=== PATIENT | female | born 1980 | race Caucasian/White ===

== ENCOUNTER 2020-01-29 18:16 | Emergency (ER) | payer OTHER ==
[2020-01-29 18:34] VITALS: BP 149/90
--- NOTE | 2020-01-29 18:45 | ER Document Report ---
ED Extremity Problem, Lower - General Chief Complaint: Leg Pain Stated Complaint: RIGHT LEG PAIN,SWELLING Time Seen by Provider: 01/29/20 18:18 Primary Care Provider: [facility] [Provider Group] - Follow up as needed [facility] [Provider Group] - Follow up as needed Mode of Arrival: Ambulatory Information source: Patient Notes: 39-year-old female presented to ED for insect bite that is now infected. She states she was bit by something while she was gardening yesterday. She states it itched last night so she took some Benadryl. She states she knew it was swelling during the night and she thought she might of scratched it some then this morning before going to work she took some Zyrtec because she could not sleep as she was going to work. She states she did take Tylenol 500 mg this morning both of these at 630 this morning. She states she felt more burning and swelling about 2 PM so she took some more Tylenol. She states at that time a little while after that it started itching and burning and then she noticed there was some blisters to the site. She states the blisters have gotten much larger and now she can feel her pulse in them. 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 She states she does not smoke she is a former smoker she does not drink in the last 9 months and she does not use any illicit drugs. 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 REVIEW OF SYSTEMS: CONSTITUTIONAL : Denies fever, chills, or sweats. Denies recent illness. RESPIRATORY: Denies cough, cold, or chest congestion. Denies shortness of breath, difficulty breathing, or wheezing. MUSCULOSKELETAL: Swelling to the right ankle SKIN: Redness swelling and blisters to the right ankle and she was bit by something while gardening yesterday and the redness and swelling have increased and now it has blisters ALL OTHER SYSTEMS REVIEWED AND NEGATIVE. VITAL SIGNS: Within normal limits. GENERAL: No acute distress, non-toxic appearance. CHEST: Clear breath sounds bilaterally. No wheezes, rales, or rhonchi. CARDIAC: Regular rate and rhythm. S1 and S2, without murmurs, gallops, or rubs. VASCULAR: Edema to the right ankle redness and tenderness blisters to the right ankle peripheral pulses normal and equal in all extremities. MUSCULOSKELETAL: Erythema swelling and blisters to the right ankle SKIN: Redness swelling and blisters to the medial aspect of the right ankle. Tender to palpation - HPI Patient complains to provider of: Pain, Swelling Location: Ankle - Right Occurred: Yesterday Where: Home, Outdoors Onset/Duration: Gradual Quality of pain: Burning Severity: Mild Pain Level: 2 Context: Wearing shoes Recent injury: No - Insect bite that she scratched Associated symptoms: Painful ambulation Exacerbated by: Movement, Walking Relieved by: Elevation, Ice - Related Data Allergies/Adverse Reactions: lidocaine Allergy (Severe, Verified 01/29/20 18:27) 2nd degree wolfe ibuprofen [From Motrin] Allergy (Verified 01/29/20 18:40) neurological prednisone Allergy (Verified 01/29/20 18:40) Suicidal Sulfa (Sulfonamide Antibiotics) Allergy (Verified 01/29/20 18:39) Jaundice Benzodiazepines Adverse Reaction (Verified 01/29/20 18:40) Hyperactivity Home Medications: multivitamins x3 Past Medical History - General Information source: Patient - Social History Smoking Status: Never Smoker Chew tobacco use (# tins/day): No Frequency of alcohol use: None Drug Abuse: None Occupation: Lead Maintenance Technician Family History: Reviewed & Not Pertinent Patient has homicidal ideation: No - Medical History Medical History: Other - Lyme's - Past Medical History Cardiac Medical History: Reports: None Pulmonary Medical History: Reports: None EENT Medical History: Reports: None Neurological Medical History: Reports: None Endocrine Medical History: Reports: None Renal/ Medical History: Reports: Other - Urethral stricture needed dilatation as an GI Medical History: Reports: None Musculoskeletal Medical History: Reports None Skin Medical History: Reports None Psychiatric Medical History: Reports: None Traumatic Medical History: Reports: None Infectious Medical History: Reports: None Past Surgical History: Reports: Hx Genitourinary Surgery - Urethral dilatation - Immunizations Immunizations up to date: Yes Hx Diphtheria, Pertussis, Tetanus Vaccination: Yes Physical Exam - Vital signs Vitals: Temp Pulse Resp BP Pulse Ox 98.6 F 79 16 149/90 H 97 01/29/20 18:21 01/29/20 18:21 01/29/20 18:21 01/29/20 18:21 01/29/20 18:21 Course - Re-evaluation Re-evalutation: 01/29/20 18:47 Discussed blisters and history and physical with Dr. Clark. I did show him pictures of the blisters and the redness to the ankle. He stated it was a staph infection and due to the insect bites and a lot she had MRSA or diabetes he recommended treatment with Augmentin. Patient was started on Augmentin and discharged home. She was also given a prescription for Bactroban. - Vital Signs Vital signs: Temp Pulse Resp BP Pulse Ox 98.6 F 79 16 149/90 H 97 01/29/20 18:21 01/29/20 18:21 01/29/20 18:21 01/29/20 18:21 01/29/20 18:21 Discharge - Discharge Clinical Impression: Cellulitis of right ankle Insect bite Qualifiers: Encounter type: initial encounter Site of insect bite: ankle Laterality: right Qualified Code(s): S90.561A - Insect bite (nonvenomous), right ankle, initial encounter Condition: Stable Disposition: HOME, SELF-CARE Additional Instructions: Insect Bites You have been bitten by an insect. These bites can cause two types of swelling: an initial swelling due to insect saliva or injected poison, and a late reaction due to your body's allergic reaction. This initial local reaction may be uncomfortable but is not dangerous. Often there's an itchy "hive" at the bite location. This is treated with anti histamines, cold compresses, and resting the affected body part. The later reaction often develops about the second day. The entire area becomes very swollen, red, itchy, and tender. This is an allergic reaction. Your body is attacking the leftover insect saliva or venom. This type of allergy is unpleasant, but not dangerous. We treat this swelling with cortisone-type medicine. Sometimes we use antibiotics if we're worried about infection. Antihistamines help with the itch. If you develop a fever, chills, a red streak, or swollen glands in the area of the bite, infection may be starting. Return at once. CELLULITIS: You have an infection of your skin and underlying soft tissues called cellulitis. This is due to bacteria, which can enter through any break in the skin, or even through an irritated hair follicle. Untreated, cellulitis will usually worsen. Antibiotics are required. Usually, warm packs or warm soaks, and elevation of the infected area are recommended. You should start getting better within 24 to 36 hours. Most infections respond quickly to the right medication. Follow-up care is important, however, to check for abscess (boil) formation, unsuspected foreign body, or resistant infection. If you develop fever, chills, or if the area of infection is becoming rapidly more swollen or painful, call the doctor at once. Augmentin Augmentin is a mixture of amoxicillin and clavulanate. Amoxicillin is a member of the penicillin family. It covers the germs likely to cause ear, bronchial, and urinary infections better than plain penicillin. The addition of clavulanate allows it to cover staph infections of the skin, as well as resistant cases of ear and sinus infections. Your physician has chosen Augmentin for you because of the special nature of your situation. Augmentin is best taken with meals. Nausea after taking the medication is rare, but can occur. Diarrhea can occur, particularly in small children. Vaginal yeast infections, and oral thrush in infants are also common. Contact your physician if these problems occur. Allergy to penicillins is common. If you have had an allergic reaction to any drug of the penicillin family, you should never take any other penicillin. Notify your doctor at once if you develop hives, shortness of breath, swelling, or faintness. Bactroban Ointment Bactroban is very effective against the germs that cause infection within the skin. It's useful for impetigo and other superficial infections. Deeper infections require antibiotics by mouth or by shot. Apply the medicine three times a day for one week, or longer if your doctor has advised it. Stop the medicine and call your doctor if you develop large blisters, sev ere itching, increasing pain, swelling, fever, or spreading redness. FOLLOW-UP CARE: If you have been referred to a physician for follow-up care, call the physicians office for an appointment as you were instructed or within the next two days. If you experience worsening or a significant change in your symptoms, notify the physician immediately or return to the Emergency Department at any time for re-evaluation. Prescriptions: Amoxicillin/Potassium Clav [Augmentin 875-125 Tablet] 1 tab PO Q12 #20 tablet Mupirocin [Bactroban 2% Ointment 22 gm] 1 applic TP TID #1 tube Forms: Elevated Blood Pressure Referrals: [facility] [Provider Group] - Follow up as needed [facility] [Provider [facility]] - Follow up as needed
== END 2020-01-29 18:45 | disposition home or self-care (01) ==
LOC: ER 18:16
DX: L03.115 Cellulitis of right lower limb (principal); S90.561A Insect bite (nonvenomous), right ankle, initial encounter; M79.604 Pain in right leg; M79.89 Other specified soft tissue disorders; W57.XXXA Bitten or stung by nonvenomous insect and other nonvenomous arthropods, initial encounter; Z88.8 Allergy status to other drugs, medicaments and biological substances; Z88.2 Allergy status to sulfonamides
CPT/HCPCS: 99283